=== PATIENT | male | born 1980 | race African-American/Black ===

== ENCOUNTER → 2019-10-04 | Outpatient (CLI) | payer OTHER ==
[~2019-10-04] MED LIST: ALBUTEROL SULFATE 0.083% NEB 2.5 MG/3 ML AMPUL NEB ONE
--- NOTE | 2019-10-05 12:35 | Pulmonary Function Test ---
Pulmonary Function Test Date of Procedure:: 10/04/19 INDICATION:: Dyspnea Referring Provider: Dr. Gatito Stockton [employer]: Yaneli Magaña, DREDGE PIPE OPERATOR, CERAMIC TILE INSTALLATION HELPER - Report Spirometry: Spirometry: pre-FVC: 4.26 L 85% post-FVC: 4.08 L 81% pre-FEV:1 3.34 L 81% post-FEV1: 3.32 L 80% pre-FEV1/FVC %: 78 post-FEV1/FVC%: 81 predicted: 82 [id number]%: 3.11 L 72% [id number]%: 3.35 L 78% Impression: Small airways disease is noted. However patient does not meet criteria for obstructive ventilatory defect.
== END ==
LOC: RT 16:01
PROVIDERS: ATTEND Family Medicine
DX: R05 Cough (principal); R06.00 Dyspnea, unspecified
CPT/HCPCS: 94060